=== PATIENT | female | born 1995 | race African-American/Black ===

== ENCOUNTER 2017-05-18 23:17 | Emergency (ER) | payer SELFPAY ==
[~2017-05-18] VITALS: Ht 154.9 cm; Wt 62.0 kg
[2017-05-19] MEDS ORDERED: IBUPROFEN 600MG TABLET PO ONE (03:45)
[2017-05-19 05:57] LABS: CLARITY URINE CLOUDY (CLEAR); COLOR URINE YELLOW (YELLOW); KETONES URINE NEGATIVE (NEGATIVE); LEUKOCYTE ESTERASE URINE TRACE (NEGATIVE); NITRITE URINE NEGATIVE (NEGATIVE); OCCULT BLOOD URINE NEGATIVE (NEGATIVE); PROTEIN URINE NEGATIVE (NEGATIVE); SPECIFIC GRAVITY URINE 1.024 (1.005-1.030); UROBILINOGEN URINE 0.2 E.U./dL (0.2-1.0)
[2017-05-19 06:03] VITALS: BP 120/78
== END 2017-05-19 06:11 | disposition home or self-care (01) ==
LOC: ER 23:17
DX: R49.0 Dysphonia (principal); J02.9 Acute pharyngitis, unspecified; Z88.1 Allergy status to other antibiotic agents
CPT/HCPCS: 81001; 81025; 87070; 87430; 87804; 99284